=== PATIENT | male | born 1935 | race Caucasian/White ===

== ENCOUNTER 2016-08-04 08:49 | Day surgery (SDC) | payer MEDICARE, OTHER ==
[~2016-08-04] VITALS: Ht 175.3 cm; Wt 131.5 kg
[2016-08-04] MEDS ORDERED: PRINZIDE 20-251 TA1 PO (10:30)
[2016-08-04] MEDS ORDERED: CENTRUM COMPLE1 EACH PO (10:30)
[2016-08-04] MEDS ORDERED: GLIMEPIRIDE4 MG PO (10:31)
[2016-08-04] MEDS ORDERED: ZYLOPRIM300 MG PO (10:31)
[2016-08-04] MEDS ORDERED: COREG12.5 MG PO (10:32)
[2016-08-04] MEDS ORDERED: MAG-OXIDE400 MG PO (10:32)
[2016-08-04] MEDS ORDERED: VENTOLIN HFA18 GM INH (10:32)
[2016-08-04] MEDS ORDERED: ZOCOR20 MG PO (10:33)
[2016-08-04] MEDS ORDERED: BROVANA15 MCG/2 M INH (10:33)
[2016-08-04] MEDS ORDERED: OMEPRAZOLE20 M1 PO (10:34)
[2016-08-04] MEDS ORDERED: SINGULAIR10 MG PO (10:34)
[2016-08-04] MEDS ORDERED: BAYER CHEWABLE81 MG PO (10:34)
[2016-08-04] MEDS ORDERED: ACETAMINOPHEN325 MG PO (10:35)
[2016-08-04] MEDS ORDERED: COSOPT EYE DROPS5 ML EACH EYE (10:35)
[2016-08-04 11:20] VITALS: BP 155/67; Ht 175.3 cm; Wt 131.5 kg
[2016-08-04 11:31] LABS: BASOPHILS 0.3 % (0.0-2.0); EOSINOPHILS 6.8 % (0-7); HEMATOCRIT 39.4 % (42.0-54.0); HEMOGLOBIN 13.2 g/dL (13.5-17.5); IMMATURE GRANULOCYTES 0.5 % (0-5); LYMPHOCYTES 30.1 % (15-50); MCH 31.7 pg (26.0-34.0); MCHC 33.5 g/dL (31.0-37.0); MCV 94.5 fL (80.0-100.0); MEAN PLATELET VOLUME 11.1 fL (7.4-10.4); MONOCYTES 6.5 % (2-11); NEUTROPHILS 55.8 % (40-80); PLATELET COUNT 145 10x3/uL (130-400); RBC 4.17 10x6/uL (4.20-6.10); RDW 14.5 % (11.5-14.5)
[2016-08-04 11:41] LABS: ANION GAP 11.4 mmol/L (8-16); CALCIUM 8.9 mg/dL (8.5-10.1); CREATININE - SERUM 1.4 mg/dL (0.6-1.3); POTASSIUM - SERUM 4.4 mmol/L (3.5-5.1)
[2016-08-04 11:56] LABS: APTT 24.9 SECONDS (22.8-39.4); INR 0.98 (0.85-1.17); PROTIME 12.8 SECONDS (11.6-15.0)
--- NOTE | 2016-08-04 16:10 | NUR ---
1510-PT. ESCORTED VIA WHEELCHAIR TO PERSONAL CAR, LEFT WITH FAMILY AT SIDE.
--- NOTE | 2016-08-08 07:07 | OP ---
PATIENT NAME: SAMMIE SALTER MEDICAL RECORD: [id number] :36 [facility]: SURGEON: MAC ROSS MD DATE OF OPERATION: 08/04/2016 PREOPERATIVE DIAGNOSIS: Right hip pain with effusion noted on MRI. POSTOPERATIVE DIAGNOSIS: Right hip pain with effusion noted on MRI. PROCEDURE PERFORMED: Right hip aspiration under fluoroscopy and then injection with 2 cc of Kenalog and 4 cc of Marcaine plain. Culture and Gram stain were sent. Fluid did appear just to be inflammatory. CONDITION: The patient tolerated the procedure well, was awakened and transferred back to outpatient surgery in stable condition. INDICATIONS: This is a 80-year-old gentleman, who has been having significant hip pain. He sees Dr. Alvarado with a history of prostate cancer. He had a small effusion on his hip and he has been having a lot of pain in his hip. We therefore discussed the options and felt like it would be worth aspirating it, did make sure it was not infected and then injecting it depending on the appearance of the aspiration. We discussed risks, benefits, and alternatives. He understood and wished to proceed. OPERATIVE REPORT: The patient was taken to the operating room and placed in supine position. TIVA anesthesia was obtained. Once this was accomplished, his right hip was prepped. I then brought in the C-arm. He was then injected with a small amount of IVP dye just to ensure that was in the hip. Following which, I aspirated, getting about not quite 10 mL of what appeared to be just a yellow inflammatory fluid. I did send this for culture and Gram stain. I then went ahead and injected him with 2 cc of Kenalog with 3 or 4 cc of Marcaine plain. He tolerated this well, was awakened and transferred to the recovery room in stable condition, having tolerated the procedure well. TRANSINT:[id number] Voice Confirmation ID: [id number] DOCUMENT ID: [id number] MAC ROSS MD at [id number] CC: [id number] DICTATION DATE: 08/04/16 1400 [facility]: 08/04/16 1930 [facility] 08/04/16 [facility] [address] [place] [address]
== END 2016-08-04 15:10 | disposition home or self-care (01) ==
LOC: D.OPS 08:49 → D.PAN 11:00 → D.OPS 15:10
PROVIDERS: Anesthesiology
DX: M25.551 Pain in right hip (principal); M25.451 Effusion, right hip